=== PATIENT | female | born 1955 | race Caucasian/White ===

== ENCOUNTER 2017-01-10 05:15 | Day surgery (SDC) | payer BC ==
[~2017-01-10] VITALS: Ht 165.1 cm; Wt 73.5 kg
[2017-01-10] MEDS ORDERED: MORPHINE 4 MG/ML INJ. SYRINGE IVP PRN ×3 (08:15)
[2017-01-10] MEDS ORDERED: METOCLOPRAMIDE HCL 10 MG/2 ML VIAL IVP PRN (08:15)
[2017-01-10] MEDS ORDERED: LR 1,000 ML IV SCH (08:15)
[2017-01-10] MEDS ORDERED: OXYCODONE/ACETAMINOPHEN 5-325 TABLET PO PRN ×2 (08:45)
[2017-01-10] MEDS ORDERED: PROMETHAZINE HCL 25 MG/ML AMP IM PRN ×2 (08:45)
[2017-01-10] MEDS ORDERED: IBUPROFEN 600 MG TABLET PO PRN (08:45)
[2017-01-10] MEDS ORDERED: ONDANSETRON HCL 4 MG/2 ML VIAL IVP PRN (08:45)
[2017-01-10 11:02] VITALS: BP_SYST 134
== END 2017-01-10 10:45 | disposition home or self-care (01) ==
LOC: SMU 05:15 → SDS 05:15
PROVIDERS: ATTEND Obstetrics & Gynecology
DX: D25.0 Submucous leiomyoma of uterus (principal); I10 Essential (primary) hypertension; Z86.010 Personal history of colon polyps; Z79.899 Other long term (current) drug therapy; I45.10 Unspecified right bundle-branch block; E66.3 Overweight; Z68.29 Body mass index [BMI] 29.0-29.9, adult; E66.9 Obesity, unspecified; R00.1 Bradycardia, unspecified
CPT/HCPCS: 36415; 58561; 86886; 86900; 86901; 88305; C1819; J7120

== ENCOUNTER 2017-07-18 05:15 | Day surgery (SDC) | payer BC ==
[~2017-07-18] VITALS: Ht 165.1 cm; Wt 81.2 kg
[2017-07-18] MEDS ORDERED: SEVOFLURANE 15 MIN GAS INH ONE (07:30)
[2017-07-18] MEDS ORDERED: CLINDAMYCIN PHOSPHATE 600 mg/50mL D5W IV ONE (07:30)
[2017-07-18] MEDS ORDERED: LR 1,000 ML IV.SOLN IV ONE (07:30)
[2017-07-18] MEDS ORDERED: ONDANSETRON HCL 4 MG/2 ML VIAL IVP ONE (07:30)
[2017-07-18] MEDS ORDERED: GENTAMICIN SULFATE 80 MG/ 2ML VIAL IV ONE (07:30)
[2017-07-18] MEDS ORDERED: EPINEPHrine 1 MG/ML AMP IV ONE (07:30)
[2017-07-18] MEDS ORDERED: NS IRRIG SOLN 1000 ML IR ONE (07:30)
[2017-07-18] MEDS ORDERED: BUPIVACAINE /PF 0.5% 30 ML VIAL INJ ONE (07:30)
[2017-07-18] MEDS ORDERED: fentaNYL CITRATE 250 MCG/5 ML AMP IV ONE (07:30)
[2017-07-18] MEDS ORDERED: MIDAZOLAM HCL 5 MG/5 ML VIAL IVP ONE (07:30)
[2017-07-18] MEDS ORDERED: KETOROLAC TROMETHAMINE 30 MG VIAL IVP ONE (07:30)
[2017-07-18] MEDS ORDERED: ROCURONIUM BROMIDE 10 MG/ML (ZEMURON) IV ONE (07:30)
[2017-07-18] MEDS ORDERED: LR 1,000 ML IV SCH (08:35)
[2017-07-18] MEDS ORDERED: MORPHINE 4 MG/ML INJ. SYRINGE IVP PRN ×3 (08:45)
[2017-07-18] MEDS ORDERED: METOCLOPRAMIDE HCL 10 MG/2 ML VIAL IVP PRN (08:45)
[2017-07-18] MEDS ORDERED: ONDANSETRON HCL 4 MG/2 ML VIAL IVP PRN (09:45)
[2017-07-18] MEDS ORDERED: HYDROmorphone 2 MG TAB PO PRN (09:45)
[2017-07-18] MEDS ORDERED: PROMETHAZINE HCL 25 MG/ML AMP IM PRN (09:45)
[2017-07-18] MEDS ORDERED: OXYCODONE/ACETAMINOPHEN 5-325 TABLET PO PRN (09:45)
[2017-07-18] MEDS ORDERED: MORPHINE 4 MG/ML INJ. SYRINGE ONE (10:07)
[2017-07-18] MEDS ORDERED: OXYCODONE/ACETAMINOPHEN 5-325 TABLET ONE (10:42)
[2017-07-18 13:14] VITALS: BP_SYST 119
== END 2017-07-18 13:05 | disposition home or self-care (01) ==
LOC: SMU 05:15 → SDS 05:15
PROVIDERS: ATTEND Obstetrics & Gynecology
DX: D25.1 Intramural leiomyoma of uterus (principal); D25.2 Subserosal leiomyoma of uterus; D27.1 Benign neoplasm of left ovary; D27.0 Benign neoplasm of right ovary; I10 Essential (primary) hypertension; Z98.890 Other specified postprocedural states; Z79.899 Other long term (current) drug therapy; Z82.49 Family history of ischemic heart disease and other diseases of the circulatory system; E66.01 Morbid (severe) obesity due to excess calories; I45.10 Unspecified right bundle-branch block
CPT/HCPCS: 36415; 58571; 86886; 86900; 86901; 87081; 88307; C1727; J0171; J1580; J1885; J2250; J2270; J2405; J3010; J3490 ×2; J7120; E0190